=== PATIENT | female | born 1975 | race Caucasian/White ===

== ENCOUNTER 2025-08-21 22:01 | Inpatient (IN) | payer OTHER ==
[2025-08-21] MEDS ORDERED: IPRATROPIUM BROM 0.5MG/2.5ML ONE (22:06)
[2025-08-21] MEDS ORDERED: ALBUTEROL 2.5 MG/3 ML NEB SOL ONE ×2 (22:07→22:09)
[2025-08-21] MEDS ORDERED: METHYLPREDNISOLONE 125 MG INJ ONE (22:09)
[2025-08-21 22:21] LABS: Absolute Lymphocytes (CBC) 1.3 K/uL (0.7-4.9); Hematocrit 47.0 % (36.0-45.0); Hemoglobin 15.5 g/dL (12.0-15.0); MCH 28.7 pg (27.0-35.0); MCHC 33.0 g/dL (32.0-36.0); MCV 87.0 fL (80-100); MPV 8.7 fL (7.6-11.3); Nucleated RBC Absolute Count 0.0 (0-0); Nucleated Red Blood Cells % 0.0 % (0-0); RBC Red Blood Cell Count 5.40 M/uL (3.86-4.86); White Blood Count 7.60 thou/uL (4.3-10.9)
[2025-08-21 22:40] LABS: Anion Gap 8.3 mEq/L (5.0-15.0); BUN Blood Urea Nitrogen 8.0 mg/dL (7-18); Glucose Level 107.0 mg/dL (74-106); Magnesium 1.9 mg/dL (1.6-2.4); NT PRO-BNP 39.0 pg/mL (<125); Potassium 3.3 mEq/L (3.5-5.1); Troponin High Sensitivity 3.4 pg/mL (<58.9)
[2025-08-21 23:13] LABS: Influenza A Ag Negative; Influenza B Ag Negative; SARS-CoV-2 Antigen Rapid Res Negative (Negative)
--- NOTE | 2025-08-22 01:38 | ER ---
Nurse's Notes [facility] Name: Connie Ellsworth Age: 49 yrs Sex: Female : 1975 Arrival Date: 08/21/2025 Time: 22:01 Bed 7 Private MD: Diagnosis: COPD/ Chronic obstructive pulmonary disease with (acute) exacerbation Presentation: 08/21 22:06 Chief complaint: Patient states: shortness of breath for three days. Coronavirus bm8 screen: Vaccine status: Patient reports being unvaccinated. Ebola Screen: Patient negative for fever greater than or equal to 101.5 degrees Fahrenheit, and additional compatible Ebola Virus Disease symptoms Patient denies exposure to infectious person. Patient denies travel to an Ebola-affected area in the 21 days before illness onset. No symptoms or risks identified at this time. Initial Sepsis Screen: Does the patient meet any 2 criteria? RR > 20 per min. HR > 90 bpm. Yes Does the patient have a suspected source of infection? No. Patient's initial sepsis screen is negative. Risk Assessment: Do you want to hurt yourself or someone else? Patient reports no desire to harm self or others. Onset of symptoms was August 18, 2025. 22:06 Method Of Arrival: Ambulatory bm8 22:06 Acuity: SENIA 2 bm8 Triage Assessment: 22:07 General: Appears in no apparent distress. comfortable, Behavior is calm, cooperative, bm8 appropriate for age. Pain: Complains of pain in chest Pain currently is 5 out of 10 on a pain scale. Neuro: No deficits noted. Level of Consciousness is awake, alert, obeys commands, Oriented to person, place, time, situation, Appropriate for age. Cardiovascular: Reports chest pain, lightheadedness, shortness of breath, Capillary refill < 3 seconds in bilateral fingers Patient's skin is warm and dry. Respiratory: Reports shortness of breath at rest air hunger labored breathing Airway is patent Respiratory effort is labored, Respiratory pattern is regular, symmetrical, Breath sounds are coarse bilaterally. Breath sounds with rales bilaterally. Onset: The symptoms/episode began/occurred 3 days, the patient has moderate shortness of breath. 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 - Infectious Disease History:: Denies. - Social history:: Smoking status: Patient/guardian denies using tobacco, the patient reports quitting approximately 2 years ago. Screenin/11 04:08 [facility] ED Fall Risk Assessment (Adult) History of falling in the last 3 months, cc6 including since admission No falls in past 3 months (0 pts) Confusion or Disorientation No (0 pts) Intoxicated or Sedated No (0 pts) Impaired Gait No (0 pts) Mobility Assist Device Used No (0 pt) Altered Elimination No (0 pt) Score/Fall Risk Level 0 - 2 = Low Risk Oriented to surroundings, Maintained a safe environment, Educated pt \T\ family on fall prevention, incl call for assistance when getting out of bed, Assessed \T\ reinforced patient's understanding of fall precautions, Hourly rounding (assess needs \T\ fall precautionary measures) done, Used ambulatory aids as needed (educated on \T\ assisted with), Used gait belt as appropriate. Abuse screen: Denies threats or abuse. Nutritional screening: No deficits noted. Tuberculosis screening: No symptoms or risk factors identified. Assessment: 08/21 22:19 General: Appears distressed, uncomfortable, Behavior is cooperative, anxious. Pain: cc6 Complains of pain in chest Pain does not radiate. Pain currently is 8 out of 10 on a pain scale. Quality of pain is described as crushing, feels like an elephant is sitting on her chest Pain began 2-3 days ago. Is intermittent. Neuro: Level of Consciousness is awake, alert, obeys commands, Oriented to person, place, time, situation. Cardiovascular: Rhythm is sinus rhythm. Respiratory: Airway is patent Respiratory effort is even, labored, Respiratory pattern is regular, tachypnea Breath sounds with rales bilaterally. GI: No signs and/or symptoms were reported involving the gastrointestinal system. : No signs and/or symptoms were reported regarding the genitourinary system. EENT: No signs and/or symptoms were reported regarding the EENT system. Derm: No signs and/or symptoms reported regarding the dermatologic system. Musculoskeletal: Range of motion: intact in all extremities. 23:02 Reassessment: Patient and/or family updated on plan of care and expected duration. Pain cc6 level reassessed. Patient is alert, oriented x 3, equal unlabored respirations, skin warm/dry/pink. 08/22 00:00 Reassessment: Patient and/or family updated on plan of care and expected duration. Pain cc6 level reassessed. Patient is alert, oriented x 3, equal unlabored respirations, skin warm/dry/pink. 01:10 Reassessment: Patient and/or family updated on plan of care and expected duration. Pain cc6 level reassessed. Patient is alert, oriented x 3, equal unlabored respirations, skin warm/dry/pink. 02:15 Reassessment: Patient and/or family updated on plan of care and expected duration. Pain cc6 level reassessed. Patient is alert, oriented x 3, equal unlabored respirations, skin warm/dry/pink. 03:02 Reassessment: Patient and/or family updated on plan of care and expected duration. Pain cc6 level reassessed. Patient is alert, oriented x 3, equal unlabored respirations, skin warm/dry/pink. 04:08 Reassessment: Patient appears in no apparent distress at this time. Patient and/or cc6 family updated on plan of care and expected duration. Pain level reassessed. Patient is alert, oriented x 3, equal unlabored respirations, skin warm/dry/pink. Patient states feeling better. Patient states symptoms have improved. Vital Signs: 08/21 22:06 BP 177 / 98; Pulse 96; Resp 24; Temp 97.9; Pulse Ox 92% on R/A; Weight 61 kg; Pain 5/10;bm8 23:02 BP 133 / 78; Pulse 92; Resp 22; Pulse Ox 94% on R/A; cc6 23:16 BP 136 / 82; Pulse 92; Resp 18; Pulse Ox 99% on R/A; mf3 08/22 01:10 BP 121 / 81; Pulse 68; Resp 23; Temp 97.9; Pulse Ox 92% on R/A; Pain 0/10; cc6 02:15 BP 120 / 83; Pulse 96; Resp 27; Pulse Ox 100% on 2 lpm NC; cc6 03:02 BP 134 / 72; Pulse 98; Resp 22; Pulse Ox 100% on 2 lpm NC; cc6 04:08 BP 122 / 69; Pulse 94; Resp 22; Temp 97.9; Pulse Ox 94% on R/A; Pain 0/10; cc6 08/21 22:06 Pain Scale: Adult bm8 08/22 01:10 Pain Scale: Adult cc6 04:08 Pain Scale: Adult cc6 Carlos Coma Score: 01:10 Eye Response: spontaneous(4). Motor Response: obeys commands(6). Verbal Response: cc6 oriented(5). Total: 15. 04:08 Eye Response: spontaneous(4). Motor Response: obeys commands(6). Verbal Response: cc6 oriented(5). Total: 15. ED Course: 08/21 22:02 Patient arrived in ED. mr 22:04 Campbell Ricardo DO is Attending Physician. ms3 22:07 Triage completed. bm8 22:07 Arm band placed on right wrist. bm8 22:19 Rhea Byrd, RN is Primary Nurse. cc6 22:21 Basic Metabolic Panel Sent. ha1 22:21 CBC with Diff Sent. ha1 22:21 Magnesium Sent. ha1 22:21 NT PRO-BNP Sent. ha1 22:21 Troponin HS Sent. ha1 22:37 XRAY Chest (1 view) In Process Unspecified. EDMS 08/22 01:36 Go Cervantes MD is Hospitalizing Provider. ms3 04:08 Patient has correct armband on for positive identification. Bed in low position. Call cc6 light in reach. Side rails up X 1. Adult w/ patient. Provided Education on: NEED FOR ADMISSION. 04:08 No provider procedures requiring assistance completed. Inserted saline lock: 20 gauge cc6 in right antecubital area, using aseptic technique. Blood collected. Flushed with 10 mL NS Patient admitted, IV remains in place. Administered Medications: 08/21 22:12 Drug: MethylPrednisoLONE IVP 125 mg IVP once Route: IVP; Site: right antecubital; cc6 22:59 Follow up: Response: No adverse reaction cc6 22:13 Drug: DuoNeb Nebulize (3:1) (2.5 mg - 0.5 mg) 3 ml Nebulizer once Route: Nebulizer; cc6 22:58 Follow up: Response: No adverse reaction cc6 08/22 01:40 Drug: Albuterol Inhalation 2.5 mg Inhalation every 20 minutes x3 Route: Inhalation; bm8 02:00 Drug: Albuterol Inhalation 2.5 mg Inhalation every 20 minutes x3 Route: Inhalation; bm8 02:20 Drug: Albuterol Inhalation 2.5 mg Inhalation every 20 minutes x3 Route: Inhalation; bm8 Medication: 04:08 VIS not applicable for this client. cc6 Outcome: 01:37 Decision to Hospitalize by Provider. ms3 04:08 Admitted to Tele accompanied by nurse, via stretcher, room 401, with chart, cc6 04:08 Condition: stable 04:08 Instructed on the need for admit, Demonstrated understanding of instructions, follow-up care, medications, 04:37 Patient left the ED. cc6 Signatures: Dispatcher [employer] EDMS Nica Piper, Reg Reg Campbell Messer, DO DO ms3 Jennifer Sands, RN RN ha1 Eulogio Valderrama, RN RN bm8 Rhea Byrd, RACHAEL RN cc6 Bruna Erickson, RN RN mf3
--- NOTE | 2025-08-22 01:38 | EDPHYS ---
Physician Documentation [facility] Name: Connie Ellsworth Age: 49 yrs Sex: Female : 1975 Arrival Date: 08/21/2025 Time: 22:01 Bed 7 Private MD: ED Physician Campbell Ricardo HPI: 08/21 22:44 This 49 yrs old Female presents to ER via Ambulatory with complaints of Breathing ms3 Difficulty. 22:44 49-year-old female with past medical history of COPD presents to the emergency ms3 department for shortness of breath that began 4 days prior to arrival. Patient states she saw her [facility] care provider, Jennifer Gaspar yesterday. Patient states she is having chest tightness that she rates an 8/10. She denies nausea or vomiting.. 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 - Infectious Disease History:: Denies. - Social history:: Smoking status: Patient/guardian denies using tobacco, the patient reports quitting approximately 2 years ago. ROS: 22:44 Constitutional: Negative for fever, and chills. Cardiovascular: Negative for chest ms3 pain, and palpitations. 22:44 Abdomen/GI: Negative for abdominal pain, nausea, vomiting, diarrhea, and constipation, MS/Extremity: Negative for injury and deformity, Skin: Negative for injury, rash, and discoloration, 22:44 Respiratory: Positive for shortness of breath, wheezing, Exam: 22:44 Constitutional: This is a well developed, well nourished patient who is awake, alert, ms3 and in no acute distress. Cardiovascular: Regular rate and rhythm with a normal S1 and S2. No gallops, murmurs, or rubs. Normal PMI, no JVD. No pulse deficits. Respiratory: Lungs have equal breath sounds bilaterally, clear to auscultation and percussion. No rales, rhonchi or wheezes noted. No increased work of breathing, no retractions or nasal flaring. Abdomen/GI: Soft, non-tender, with normal bowel sounds. No distension or tympany. No guarding or rebound. No evidence of tenderness throughout. MS/ Extremity: Pulses equal, no cyanosis. Neurovascular intact. Full, normal range of motion. 22:47 ECG was reviewed by the Attending Physician. ms3 Vital Signs: 22:06 BP 177 / 98; Pulse 96; Resp 24; Temp 97.9; Pulse Ox 92% on R/A; Weight 61 kg; Pain 5/10;bm8 23:02 BP 133 / 78; Pulse 92; Resp 22; Pulse Ox 94% on R/A; cc6 23:16 BP 136 / 82; Pulse 92; Resp 18; Pulse Ox 99% on R/A; mf3 08/22 01:10 BP 121 / 81; Pulse 68; Resp 23; Temp 97.9; Pulse Ox 92% on R/A; Pain 0/10; cc6 02:15 BP 120 / 83; Pulse 96; Resp 27; Pulse Ox 100% on 2 lpm NC; cc6 03:02 BP 134 / 72; Pulse 98; Resp 22; Pulse Ox 100% on 2 lpm NC; cc6 04:08 BP 122 / 69; Pulse 94; Resp 22; Temp 97.9; Pulse Ox 94% on R/A; Pain 0/10; cc6 08/21 22:06 Pain Scale: Adult bm8 08/22 01:10 Pain Scale: Adult cc6 04:08 Pain Scale: Adult cc6 Dowell Coma Score: 01:10 Eye Response: spontaneous(4). Motor Response: obeys commands(6). Verbal Response: cc6 oriented(5). Total: 15. 04:08 Eye Response: spontaneous(4). Motor Response: obeys commands(6). Verbal Response: cc6 oriented(5). Total: 15. MDM: 08/21 22:11 Medical Screening Exam initiated ms3 22:44 Differential diagnosis: CHF exacerbation, Chronic Obstructive Pulmonary Disease ms3 Myocardial Infarction. 08/22 02:37 Data reviewed: vital signs, nurses notes, lab test result(s), EKG, radiologic studies, ms3 and as a result, I will admit patient. Consideration of Admission/Observation Patient was admitted/placed on observation. Management of patient was discussed with the following: Hospitalist: May Balbuena. I considered the following discharge prescriptions or medication management in the emergency department Medications were administered in the Emergency Department. See MAR. Independent interpretation of the following test(s) in the Emergency Department EKG: See my EKG interpretation above X-Ray: My interpretation is Chest x-ray images reviewed by me do not reveal pneumonia. Counseling: I had a detailed discussion with the patient and/or guardian regarding the historical points, exam findings, and any diagnostic results supporting the discharge/admit diagnosis, lab results, radiology results, the need for further work-up and treatment in the hospital. ED course: Patient remains with wheezing, oxygen saturation low 90s, mild increase in respiratory rate. Patient speaking full sentences. Will admit patient. Discussed plan with patient and she understands and agrees with plan.. 08/21 22:10 Order name: Basic Metabolic Panel; Complete Time: 22:44 ms3 08/21 22:10 Order name: CBC with Diff; Complete Time: 22:44 ms3 08/21 22:10 Order name: Magnesium; Complete Time: 22:44 ms3 08/21 22:10 Order name: NT PRO-BNP; Complete Time: 22:44 ms3 08/21 22:10 Order name: Troponin HS; Complete Time: 22:44 ms3 08/21 22:45 Order name: COVID-19 Ag + Flu A+B Ag; Complete Time: 23:29 ms3 08/21 22:10 Order name: XRAY Chest (1 view) ms3 08/21 22:10 Order name: EKG; Complete Time: 22:12 ms3 08/21 22:10 Order name: Cardiac monitoring; Complete Time: 22:21 ms3 08/21 22:10 Order name: EKG - Nurse/Tech; Complete Time: 22:21 ms3 08/21 22:10 Order name: IV Saline Lock; Complete Time: 22:13 ms3 08/21 22:10 Order name: Labs collected and sent; Complete Time: 22:21 ms3 08/21 22:10 Order name: O2 Per Protocol; Complete Time: 22:13 ms3 08/21 22:10 Order name: O2 Sat Monitoring; Complete Time: 22:13 ms3 EC/10 22:47 Rate is 83 beats/min. Rhythm is regular. QRS Keeling is Normal. CA interval is normal. QRS ms3 interval is normal. Clinical impression: NSR w/ Non-specific ST/T Changes. Interpreted by me. Reviewed by me. Administered Medications: 22:12 Drug: MethylPrednisoLONE IVP 125 mg IVP once Route: IVP; Site: right antecubital; 6 22:59 Follow up: Response: No adverse reaction [facility] 22:13 Drug: DuoNeb Nebulize (3:1) (2.5 mg - 0.5 mg) 3 ml Nebulizer once Route: Nebulizer; cc6 22:58 Follow up: Response: No adverse reaction [facility] 08/22 01:40 Drug: Albuterol Inhalation 2.5 mg Inhalation every 20 minutes x3 Route: Inhalation; 8 02:00 Drug: Albuterol Inhalation 2.5 mg Inhalation every 20 minutes x3 Route: Inhalation; 8 02:20 Drug: Albuterol Inhalation 2.5 mg Inhalation every 20 minutes x3 Route: Inhalation; bm8 Disposition: 02:38 Critical Care:. ms3 Disposition Summary: 08/22/25 01:37 Hospitalization Ordered Notes: Hospitalization Status: Inpatient Admission ms3 Provider: Go Cervantes ms3 Location: Telemetry/[facility] (Inpatient) ms3 Condition: Stable ms3 Problem: new ms3 Symptoms: are unchanged ms3 Bed/Room Type: Standard ms3 Room Assignment: 401(08/22/25 03:54) rv1 Diagnosis - COPD/ Chronic obstructive pulmonary disease with (acute) exacerbation ms3 Forms: - Medication Reconciliation Form ms3 - SBAR form ms3 - Leadership Thank You Letter ms3 Critical care time excluding procedures: 02:38 Critical care time: Bedside Care: 35 minutes, Consultation: 5 minutes. Total time: 40 ms3 minutes Signatures: Dispatcher [employer] EDMS Campbell Ricardo DO DO ms3 Veronica Saxena rv1 Eulogio Valderrama, RN RN bm8 Rhea Byrd, RN RN cc6 Corrections: (The following items were deleted from the chart) 03:54 01:37 ms3 rv1
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
[2025-08-22 04:47] VITALS: BMI 25.9
[2025-08-22] MEDS: guaiFENesin 100 MG/5 ML UCUP PO PRN (05:20)
[2025-08-22] MEDS: METHYLPREDNISOLONE 125 MG INJ IV SCH (05:20)
[2025-08-22] MEDS: POTASSIUM 25 MEQ EFFERV TAB PO ONE (07:41)
[2025-08-22] MEDS: ARFORMOTEROL TARTRATE 15 MCG/2 ML VIAL.NEB NEB SCH (07:51)
[2025-08-22] MEDS: IPRATROPIUM BROM 0.5MG/2.5ML NEB PRN (07:55)
[2025-08-22] MEDS: ALBUTEROL 2.5 MG/3 ML NEB SOL NEB PRN (07:55)
--- NOTE | 2025-08-22 08:00 | RAD REPORT ---
PROCEDURE: XR Chest, 1 View CLINICAL INDICATION: The patient is 49 years old and is Female; Dyspnea. TECHNIQUE: Frontal view of the chest. COMPARISON: None. FINDINGS: LUNGS: No discrete focal consolidation. PLEURAL SPACE: No appreciable pleural effusion or pneumothorax. MEDIASTINUM: Unremarkable cardiomediastinal contour. BONES/JOINTS: No acute osseous abnormality. IMPRESSION: No acute cardiopulmonary abnormality. Electronically signed by: Vivek Olivas MD 08/21/2025 11:46 PM CDT RP Due to temporary technical issues with the PACS/Fitbit reporting system, reports are being xavier d by the in-house radiologist without review as a courtesy to ensure prompt reporting the interpreting radiologist is fully responsible for the content of the report. Transcribed Date/Time: 08/22/2025 8:00 AM
[2025-08-22] MEDS: NICOTINE 21 MG/PAT TD SCH (10:45)
[2025-08-22] MEDS: ENOXAPARIN 40 MG/0.4 ML SQ SCH (10:48)
--- NOTE | 2025-08-22 10:48 | P.CNS ---
Date of Consult: 08/22/25 Reason for Consult: Asthma exacerbation Chief Complaint: Asthma exacerbation History of Present Illness: Patient is 49 years of age with a history of asthma she has been using Symbicort for a number of years for the past 2 weeks has gotten progressively worse was seen by her nurse practitioner compliant with her Symbicort and albuterol inhaler became acutely short of breath ended up here in the emergency room has been stable for quite some time Allergies codeine Adverse Reaction (Verified 08/22/25 04:58) Nausea/Vomiting Home Medications: Albuterol Sulfate [Proair Respiclick] 2 puff IH Q6HR 08/22/25 Budesonide/Formoterol Fumarate [Budesonide-Formoterol 160-4.5] 1 puff IH BID 08/22/25 Cetirizine HCl 1 tab PO DAILY 08/22/25 Fluticasone Propionate 2 spray IH DAILY 08/22/25 predniSONE [Prednisone*] 1 tab PO DAILY 08/22/25 - Past Medical/Surgical History -: Kidney stones. -: Nicotine dependence. -: asthma -: Appendectomy. - Family History Father Medical History: Heart disease, Hypertension - Social History Alcohol use: Yes CD- Drugs: No Caffeine use: No Place of Residence: Home Review of Systems 10-point ROS is otherwise unremarkable General: Weakness Respiratory: Cough, Shortness of Breath Physical Examination Temp Pulse Resp BP Pulse Ox 97.8 F 58 16 118/71 95 08/22/25 08:00 08/22/25 08:00 08/22/25 08:00 08/22/25 08:00 08/22/25 08:00 General: Alert, Oriented x3, Mild distress Respiratory: Clear to auscultation bilaterally Cardiovascular: No edema, Regular rate/rhythm, Normal S1 S2 Gastrointestinal: Normal bowel sounds, Soft and benign Musculoskeletal: No clubbing, No warmth Integumentary: No breakdown Laboratory Data (last 24 hrs) 08/21/25 08/21/25 22:14 22:14 WBC 7.60 Hgb 15.5 H Hct 47.0 H Plt Count 308 Sodium 137 Potassium 3.3 L BUN 8 Creatinine 0.74 Glucose 107 H Magnesium 1.9 - Problems (1) Asthma exacerbation Current Visit: Yes Status: Acute Plan: Patient is 49 years of age with a history of asthma uses Symbicort at home has gotten worse over the past 2 weeks apparently she was on prednisone 10 mg for 2 months and was just recently taken off compliant with her inhalers came in with an exacerbation chest x-ray is clear labs unremarkable plan to start on prednisone 20 mg twice a day for a week continue with Symbicort add azithromycin 250 mg every other day if doing better by tomorrow possible discharge follow-up with me next week I also added a Spiriva to her inhaler at home
[2025-08-22] MEDS: predniSONE 20 MG TAB PO SCH (11:01)
[2025-08-22] MEDS: AZITHROMYCIN 250 MG TAB PO SCH (11:01)
[2025-08-22] MEDS: DULERA 200/5 (MOMETASONE/FORMOTEROL) INHALER IH SCH (12:29)
--- NOTE | 2025-08-22 12:42 | P.PN ---
Date of Service: 08/22/25 Subjective Patient is doing well and respiratory status has improved. Wean down oxygen requirements. Appreciate pulmonary recommendations. Physical Examination -Vitals Reviewed - Physical Exam General: Alert, In no apparent distress, Oriented x3 HEENT: Atraumatic, Normocephalic, PERRLA, Mucous membr. moist/pink Neck: Supple, 2+ carotid pulse no bruit, JVD not distended, No Thyromegaly, Without JVD or thyroid abnormality Respiratory: Diminished (Poor aeration bilateral), Expiratory wheezes, Inspiratory wheezes Cardiovascular: Regular rate rhythm with no murmurs Abdomen: Soft, nontender/nondistended bowel sounds hypoactive Extremities: Lower extremity edema Neuro: No focal deficits Assessment and Plan -Assessment/Plan Patient is admitted to inpatient with diagnosis of COPD exacerbation. (1) COPD exacerbation. -Brovana 1 5 mcg nebulizer twice daily. -DuoNeb every 6 hours as needed. -Solu-Medrol 125 mg IV every 6 hours. -Levaquin 7 and 50 mg p.o. daily. -Oxygen supplement 3 L, titrate to maintain patient O2 saturation above 90%. -Consult full stack php developer Dr. Solo. (2) Nicotine use dependence. Daily smoker of cigarettes. -Order nicotine patch 21 mg daily. Did an extensive education with patient and significant other present at bedside on the effect of cigarette smoking to her COPD, solicit questions answered and voiced understanding. (3) DVT prophylaxis. -Lovenox 40 mg subcu daily. Discharge Plan: Home Plan to discharge in: Greater than 2 days - Advance Directives Does patient have a Living Will: No Does patient have a Durable POA for Healthcare: No - Code Status/Comfort Care Code Status Assessed: Yes Code Status: Full Code Critical Care: No Time Spent Managing Pts Care (In Minutes): 30
[2025-08-22] MEDS: ACETAMINOPHEN 325 MG TABLET PO ONE (14:47)
[2025-08-23 06:08] LABS: Absolute Lymphocytes (CBC) 1.0 K/uL (0.7-4.9); Hematocrit 41.7 % (36.0-45.0); Hemoglobin 14.0 g/dL (12.0-15.0); MCH 29.1 pg (27.0-35.0); MCHC 33.7 g/dL (32.0-36.0); MCV 86.3 fL (80-100); MPV 8.8 fL (7.6-11.3); Nucleated RBC Absolute Count 0.0 (0-0); Nucleated Red Blood Cells % 0.0 % (0-0); RBC Red Blood Cell Count 4.83 M/uL (3.86-4.86); White Blood Count 14.00 thou/uL (4.3-10.9)
[2025-08-23 06:27] LABS: ALT/SGPT 44.0 U/L (13-56); AST/SGOT 22.0 U/L (15-37); Albumin 3.5 g/dL (3.4-5.0); Albumin/Globulin Ratio 0.9 (1.1-1.8); Alkaline Phosphatase 93.0 U/L (45-117); Anion Gap 10.8 mEq/L (5.0-15.0); BUN Blood Urea Nitrogen 18.0 mg/dL (7-18); Globulin 3.8 g/dL (2.3-3.5); Glucose Level 130.0 mg/dL (74-106); Magnesium 2.3 mg/dL (1.6-2.4); Potassium 3.8 mEq/L (3.5-5.1)
[2025-08-23] MEDS: POTASSIUM CL SA 10 MEQ TAB PO ONE (08:14)
[2025-08-23 08:45] LABS: Blood Morphology Comment NOT SEEN (NOT SEEN); White Blood Cell Scan OK (OK)
[2025-08-23] MEDS: MELATONIN 5 MG TABLET PO PRN (20:11)
[2025-08-24 06:41] LABS: Absolute Lymphocytes (CBC) 1.4 K/uL (0.7-4.9); Hematocrit 44.3 % (36.0-45.0); Hemoglobin 14.7 g/dL (12.0-15.0); MCH 28.7 pg (27.0-35.0); MCHC 33.2 g/dL (32.0-36.0); MCV 86.2 fL (80-100); MPV 8.4 fL (7.6-11.3); Nucleated RBC Absolute Count 0.0 (0-0); Nucleated Red Blood Cells % 0.1 % (0-0); RBC Red Blood Cell Count 5.14 M/uL (3.86-4.86); White Blood Count 12.50 thou/uL (4.3-10.9)
[2025-08-24 07:03] LABS: ALT/SGPT 57.0 U/L (13-56); AST/SGOT 27.0 U/L (15-37); Albumin 3.7 g/dL (3.4-5.0); Albumin/Globulin Ratio 0.9 (1.1-1.8); Alkaline Phosphatase 101.0 U/L (45-117); Anion Gap 10.3 mEq/L (5.0-15.0); BUN Blood Urea Nitrogen 18.0 mg/dL (7-18); Globulin 4.3 g/dL (2.3-3.5); Glucose Level 114.0 mg/dL (74-106); Magnesium 2.1 mg/dL (1.6-2.4); Potassium 4.3 mEq/L (3.5-5.1)
[2025-08-24 16:23] VITALS: BP 151/86; TEMP 98.2
[2025-08-24 18:25] VITALS: O2SAT 96
[2025-08-24] MEDS: METHYLPREDNISOLONE 125 MG INJ IV ONE (18:50)
[2025-08-24] MEDS: LORazepam 2 MG/ML VIAL IV ONE (18:50)
== END 2025-08-24 19:00 | disposition left against medical advice (07) | DRG 202 ==
LOC: ER 22:01 → ERHOLD 08-22 03:49 → 4TH 08-22 04:01
PROVIDERS: ADMIT Hospitalist; ATTEND Hospitalist
DX: J45.901 Unspecified asthma with (acute) exacerbation (principal); J44.1 Chronic obstructive pulmonary disease with (acute) exacerbation; F17.210 Nicotine dependence, cigarettes, uncomplicated; Z90.49 Acquired absence of other specified parts of digestive tract; Z79.52 Long term (current) use of systemic steroids; Z79.899 Other long term (current) drug therapy; Z11.52 Encounter for screening for COVID-19
CPT/HCPCS: 36415; 71045; 80048; 80053; 83735; 83880; 84484; 85025; 87428; 93005; 94010; 94640; 96374; 99285; J1650; J2919; J3535; J7512; J7605; J7613; J7644